=== PATIENT | female | born 1980 | race Caucasian/White ===

== ENCOUNTER 2017-05-13 17:33 | Emergency (ER) | payer OTHER ==
[~2017-05-13] VITALS: Ht 170.2 cm; Wt 110.3 kg
[~2017-05-13 17:33] MED LIST: HYDR-2362 PO
[2017-05-13 18:21] VITALS: BP 152/99
--- NOTE | 2017-05-13 19:28 | NUR ---
36/F CAME IN W C/O DIZZINESS, SUDDEN ONSET TODAY WHILE SHOPPING. ALSO REPORTS DRY MOUTH AND BLURRY VISION. DENIES CP/ REPORTS INTERMITTENT SOB DURING ACTIVITY. ALL LUNG SOUNDS,CBTA 20RR EVEN AND UNLABORED. GCS 15, AOX4, AMBULATORY WITH STEADY GAIT. BS 384, 2 HOURS POSTPRANDIAL. PMH: PREDIABETES, HTN RX: LISINOPRIL
[2017-05-13] MEDS ORDERED: NACL 0.9% 1,000 ML IV ONE (20:10)
[2017-05-13 20:15] LABS: APPEARANCE,URINE CLEAR (CLEAR); BILIRUBIN,URINE NEGATIVE (NEGATIVE); BLOOD, URINE TRACE-I (NEGATIVE); COLOR,URINE YELLOW (YELLOW); LEUKOCYTE ESTERASE ,URINE NEGATIVE (NEGATIVE); NITRITE, URINE NEGATIVE (NEGATIVE); UGLUCOSE 3+ (NEGATIVE)
[2017-05-13 20:37] LABS: RBC,URINE 0-5 (RARE) /HPF (0-5); WBC,URINE 0-5 (RARE) /HPF (0-5)
[2017-05-13 20:48] LABS: BASOPHILS # (AUTO) 0.1 K/uL (0.00-0.22); BASOPHILS % (AUTO) 0.9 % (0.0-2.0); EOSINOPHILS # (AUTO) 0.2 K/uL (0-0.4); EOSINOPHILS % (AUTO) 1.3 % (0.0-4.0); HEMOGLOBIN 11.9 g/dL (12.0-16.0); LYMPHOCYTES % (AUTO) 22.3 % (20.5-51.1); MEAN CORPUSCULAR HEMOGLOBIN 30 pg (27-31); MEAN CORPUSCULAR HGB CONC 34 g/dL (33-37); MEAN CORPUSCULAR VOLUME 89 fL (80-94); MONOCYTES # (AUTO) 0.8 K/uL (0.8-1.0); MONOCYTES % (AUTO) 5.8 % (1.7-9.3); NEUTROPHILS # (AUTO) 9.5 K/uL (1.8-7.7); NEUTROPHILS % (AUTO) 69.7 % (42.2-75.2); PLATELET COUNT (AUTO) 284 K/uL (140-450); RED BLOOD CELL COUNT(AUTO) 3.94 MIL/uL (4.20-5.40); RED CELL DISTRIBUTION WIDTH 12.5 % (11.6-13.7); WHITE BLOOD COUNT (AUTO) 13.6 K/uL (4.8-10.8)
[2017-05-13 20:56] LABS: CREATININE 0.9 mg/dL (0.6-1.3)
[2017-05-13] MEDS ORDERED: INSULIN HUMAN REGULAR 100 UNITS/ML 10 ML VIAL IVP ONE (21:05)
[2017-05-13 21:11] LABS: ALBUMIN 3.8 g/dL (3.4-5.0); FREE T4 (FREE THYROXINE) 0.92 ng/dL (0.76-1.46); THYROID STIMULATING HORMONE 1.59 uIU/mL (0.34-3.74); TOTAL BILIRUBIN 0.2 mg/dL (0.0-1.0)
--- NOTE | 2017-05-13 21:32 | NUR ---
Patient discharged with v/s stable. Written and verbal after care instructions given and explained. Patient alert, oriented and verbalized understanding of instructions. Ambulatory with steady gait. All questions addressed prior to discharge. ID band removed. Patient advised to follow up with PMD. Rx of METFORMIN given. Patient educated on indication of medication including possible reaction and side effects. Opportunity to ask questions provided and answered. IV removed, catheter intact and site benign. Applied folded 4x4 gauze and tape to stop bleeding.
[2017-05-13 21:34] VITALS: BP 131/74
== END 2017-05-13 21:32 | disposition home or self-care (01) ==
LOC: MED 17:33
DX: R73.9 Hyperglycemia, unspecified (principal); I10 Essential (primary) hypertension; E66.9 Obesity, unspecified; Z79.899 Other long term (current) drug therapy
CPT/HCPCS: 36415; 80053; 81001; 81025; 82948; 84439; 84443; 85025; 93005; 96360; 96372; 99285; J1815; 96361

== ENCOUNTER 2018-05-10 19:00 | Emergency (ER) | payer OTHER ==
[~2018-05-10] VITALS: Ht 170.2 cm; Wt 109.0 kg
[2018-05-10 19:05] VITALS: BP 174/103
--- NOTE | 2018-05-10 19:07 | NUR ---
PT AMBULATED TO ER BED 11
--- NOTE | 2018-05-10 19:10 | NUR ---
PT PRESENTED TO ED WITH C/O ABD PAIN AND BLOATING. PT STATES PAIN STARTED THIS AM. PAIN 10/27.
--- NOTE | 2018-05-10 19:28 | NUR ---
DR DAVENPORT AT BEDSIDE SEEING PT
[2018-05-10] MEDS ORDERED: MORPHINE SULFATE 4 MG/ML SYR IVP ONE (19:35)
[2018-05-10] MEDS ORDERED: NACL 0.9% 1,000 ML IV SCH (19:35)
[2018-05-10] MEDS ORDERED: ONDANSETRON 4 MG/2 ML VIAL IVP ONE (19:35)
[2018-05-10 20:04] LABS: BASOPHILS # (AUTO) 0.3 K/uL (0.00-0.22); BASOPHILS % (AUTO) 1.6 % (0.0-2.0); EOSINOPHILS # (AUTO) 0.2 K/uL (0-0.4); HEMATOCRIT 33.4 % (36-48); HEMOGLOBIN 10.8 g/dL (12.0-16.0); LYMPHOCYTES # (AUTO) 2.3 K/uL (2.5-16.5); LYMPHOCYTES % (AUTO) 13.1 % (20.5-51.1); MEAN CORPUSCULAR HEMOGLOBIN 29 pg (27-31); MEAN CORPUSCULAR HGB CONC 32 g/dL (33-37); MEAN CORPUSCULAR VOLUME 88.8 fL (80-94); MONOCYTES # (AUTO) 0.7 K/uL (0.8-1.0); MONOCYTES % (AUTO) 3.9 % (1.7-9.3); NEUTROPHILS % (AUTO) 80.4 % (42.2-75.2); PLATELET COUNT (AUTO) 300 K/uL (140-450); RED BLOOD CELL COUNT(AUTO) 3.76 MIL/uL (4.20-5.40); RED CELL DISTRIBUTION WIDTH 13.1 % (11.6-13.7); WHITE BLOOD COUNT (AUTO) 17.4 K/uL (4.8-10.8)
[2018-05-10 20:14] LABS: APPEARANCE,URINE CLEAR (CLEAR); BILIRUBIN,URINE NEGATIVE (NEGATIVE); BLOOD, URINE 3+ (NEGATIVE); COLOR,URINE YELLOW (YELLOW); LEUKOCYTE ESTERASE ,URINE TRACE (NEGATIVE); NITRITE, URINE NEGATIVE (NEGATIVE); UGLUCOSE NEGATIVE (NEGATIVE)
--- NOTE | 2018-05-10 20:14 | NUR ---
PT TAKEN TO CT
[2018-05-10 20:19] LABS: RBC,URINE 11-20 (MOD) /HPF (0-5); WBC,URINE 0-5 (RARE) /HPF (0-5)
[2018-05-10 20:22] LABS: ANION GAP 13.6 (8-16); CARBON DIOXIDE 24.9 mmol/L (21-32); CREATININE 0.8 mg/dL (0.6-1.3); POTASSIUM 3.5 mmol/L (3.5-5.1); TOTAL BILIRUBIN 0.3 mg/dL (0.0-1.0)
--- NOTE | 2018-05-10 20:22 | NUR ---
PT RETURN FROM CT
[2018-05-10 20:51] LABS: ALBUMIN 3.7 g/dL (3.4-5.0)
[2018-05-10 21:09] VITALS: BP 123/58
--- NOTE | 2018-05-10 21:09 | NUR ---
Patient discharged with v/s stable. Written and verbal after care instructions given and explained. Patient alert, oriented and verbalized understanding of instructions. Ambulatory with steady gait. All questions addressed prior to discharge. ID band removed. Patient advised to follow up with PMD. Rx of NORCO, ZOFRAN AND MOTRIN given. Patient educated on indication of medication including possible reaction and side effects. Opportunity to ask questions provided and answered.
== END 2018-05-10 21:09 | disposition home or self-care (01) ==
LOC: MED 19:00
DX: R10.84 Generalized abdominal pain (principal); R11.0 Nausea; R50.9 Fever, unspecified; E11.9 Type 2 diabetes mellitus without complications; I10 Essential (primary) hypertension; Z90.49 Acquired absence of other specified parts of digestive tract; Z79.899 Other long term (current) drug therapy
CPT/HCPCS: 36415; 74176; 80053; 81001; 81025; 83690; 85025; 87086; 96374; 96375; 99284; J2270; J2405; J7030

== ENCOUNTER 2018-09-16 00:58 | Emergency (ER) | payer OTHER ==
[~2018-09-16] VITALS: Ht 162.6 cm; Wt 74.8 kg
[2018-09-16 01:07] VITALS: BP 165/91
[2018-09-16] MEDS ORDERED: KETOROLAC 60 MG/2 ML VIAL IM ONE (01:15)
[2018-09-16] MEDS ORDERED: MORPHINE SULFATE 4 MG/ML SYR IM ONE (01:40)
--- NOTE | 2018-09-16 01:47 | NUR ---
DR. DAVENPORT BEDSIDE EVALUATING PT
[2018-09-16 02:09] VITALS: BP 142/86
== END 2018-09-16 02:08 | disposition home or self-care (01) ==
LOC: MED 00:58
DX: M25.511 Pain in right shoulder (principal); E11.9 Type 2 diabetes mellitus without complications; I10 Essential (primary) hypertension; F17.200 Nicotine dependence, unspecified, uncomplicated; Z90.49 Acquired absence of other specified parts of digestive tract; Z79.899 Other long term (current) drug therapy
CPT/HCPCS: 81025; 96372; 99283; J1885; 81002; J2270

== ENCOUNTER 2019-02-13 13:02 | Emergency (ER) | payer SELFPAY ==
[~2019-02-13] VITALS: Ht 170.2 cm; Wt 103.4 kg
[2019-02-13 13:24] VITALS: BP 107/58
--- NOTE | 2019-02-13 13:41 | NUR ---
C/O SUDDEN ONSET OF RIGHT PELVIC SHARP/STABBING PAIN RADIATING RIGHT FLANK X THIS AM----HOT SENSATION UPON VOIDING +FATIGUE
[2019-02-13] MEDS ORDERED: LEVOFLOXACIN 500 MG TAB PO ONE (14:25)
[2019-02-13] MEDS ORDERED: KETOROLAC 60 MG/2 ML VIAL IM ONE (14:25)
[2019-02-13] MEDS ORDERED: cefTRIAXone 1,000 MG in LIDOCAINE 1% 2.1 ML IM ONE (14:25)
[2019-02-13 14:26] LABS: APPEARANCE,URINE CLOUDY (CLEAR); BILIRUBIN,URINE NEGATIVE (NEGATIVE); BLOOD, URINE 3+ (NEGATIVE); COLOR,URINE YELLOW (YELLOW); LEUKOCYTE ESTERASE ,URINE 1+ (NEGATIVE); NITRITE, URINE POSITIVE (NEGATIVE); PH,URINE 5.5 (5.0-9.0); UGLUCOSE NEGATIVE (NEGATIVE)
[2019-02-13 14:44] LABS: RBC,URINE 0-5 /HPF (0-5); WBC,URINE 60-80 /HPF (0-5)
[2019-02-13] MEDS ORDERED: cefTRIAXone 1,000 MG VIAL ONE (14:49)
[2019-02-13] MEDS ORDERED: LIDOCAINE MPF 1% 5 ML ONE (14:50)
--- NOTE | 2019-02-13 15:00 | NUR ---
Dr. Ruelas evaluating patient at bedside.
--- NOTE | 2019-02-13 15:31 | NUR ---
PT TO CT VIA WC
--- NOTE | 2019-02-13 15:31 | NUR ---
Pt taken to CT via w/c.
--- NOTE | 2019-02-13 15:40 | NUR ---
Patient returned from CT scan. RN re-evaluating patient at bedside.
[2019-02-13] MEDS ORDERED: LACTULOSE 20 GM/30 ML UDC PO ONE (16:15)
[2019-02-13 17:12] VITALS: BP 109/62
--- NOTE | 2019-02-13 17:12 | NUR ---
Patient discharged with v/s stable. Written and verbal after care instructions given and explained. Patient alert, oriented and verbalized understanding of instructions. Ambulatory with steady gait. All questions addressed prior to discharge. ID band removed. Patient advised to follow up with PMD. Rx of Colace 100mg, Motrin 800mg and Levaquin 500mg given. Patient educated on indication of medication including possible reaction and side effects. Opportunity to ask questions provided and answered.
--- NOTE | 2019-02-15 17:27 | NUR ---
positive urine culture for e.coli finalized. reviwed chart, called back pt to return for sensitive to culture Macrobid. Left a voice message to number provided in system. pt to call back and provide pharmacy or return to [facility] prescription.
== END 2019-02-13 17:12 | disposition home or self-care (01) ==
LOC: MED 13:02
DX: N12 Tubulo-interstitial nephritis, not specified as acute or chronic (principal); K80.50 Calculus of bile duct without cholangitis or cholecystitis without obstruction; K59.00 Constipation, unspecified; I10 Essential (primary) hypertension; E11.9 Type 2 diabetes mellitus without complications; Z79.899 Other long term (current) drug therapy
CPT/HCPCS: 74176; 81001; 81025; 82948; 87086; 87186; 96372; 99284; J0696; J1885; J2001

== ENCOUNTER 2019-12-03 22:31 | Emergency (ER) | payer MEDICAID ==
[~2019-12-03] VITALS: Ht 170.2 cm; Wt 108.9 kg
[2019-12-03 22:51] VITALS: BP 146/86
--- NOTE | 2019-12-03 22:57 | NUR ---
PT AMBULATED TO BED 5 WITH STEADY GAIT
--- NOTE | 2019-12-03 23:01 | NUR ---
PT PROVIDED URINE SAMPLE
--- NOTE | 2019-12-03 23:05 | NUR ---
39 Y/O FEMALE PRESENTED TO ED C/O PAINFUL URINATION X 3 WEEKS. PT STATES AFTER URINATION SHE GETS BURNING SENSATION LLQ & RLQ ABD THAT RADIATES TO RIGHT FLANK. PT RATES PAIN 8/10 BUT ONLY HURTS AFTER URINATION. PT DENIES TAKING ANY MEDICATION FOR PAIN. PT DENIES N/V/D/FEVER/CHILLS/BODY ACHES. PT ABD ROUND, SOFT AND NON TENDER. NORMOACTIVE BOWEL SOUNDS. A/O X 4 , RR EVEN AND UNLABORED, VSS. PT RESTING IN BED, LOCKED AND IN LOWEST POSITION, HOB ELEVATED, SIDE RAIL X1. PMH: DM, HTN, UTI NKA
--- NOTE | 2019-12-03 23:12 | NUR ---
URINE SAMPLE COLLECTED AND WALKED TO LAB.
[2019-12-03 23:16] LABS: APPEARANCE,URINE CLEAR (CLEAR); BILIRUBIN,URINE NEGATIVE (NEGATIVE); BLOOD, URINE NEGATIVE (NEGATIVE); COLOR,URINE YELLOW (YELLOW); LEUKOCYTE ESTERASE ,URINE NEGATIVE (NEGATIVE); NITRITE, URINE NEGATIVE (NEGATIVE); PH,URINE 5.5 (5.0-9.0); UGLUCOSE 3+ (NEGATIVE)
[2019-12-03] MEDS ORDERED: NACL 0.9% 1,000 ML IV ONE (23:25)
--- NOTE | 2019-12-03 23:33 | NUR ---
LAB AT BEDSIDE.
--- NOTE | 2019-12-03 23:35 | NUR ---
PT AMBULATED TO RESTROOM W/ STEADY GAIT.
[2019-12-03 23:39] LABS: BASOPHILS # (AUTO) 0.1 K/uL (0.00-0.22); BASOPHILS % (AUTO) 0.6 % (0.0-2.0); EOSINOPHILS # (AUTO) 0.3 K/uL (0-0.4); EOSINOPHILS % (AUTO) 2.5 % (0.0-4.0); HEMATOCRIT 36.4 % (36-48); HEMOGLOBIN 12.1 g/dL (12.0-16.0); LYMPHOCYTES # (AUTO) 4.6 K/uL (2.5-16.5); LYMPHOCYTES % (AUTO) 34.9 % (20.5-51.1); MEAN CORPUSCULAR HEMOGLOBIN 30 pg (27-31); MEAN CORPUSCULAR HGB CONC 33 g/dL (33-37); MEAN CORPUSCULAR VOLUME 89.4 fL (80-94); MONOCYTES # (AUTO) 0.8 K/uL (0.8-1.0); MONOCYTES % (AUTO) 5.8 % (1.7-9.3); NEUTROPHILS # (AUTO) 7.5 K/uL (1.8-7.7); NEUTROPHILS % (AUTO) 56.2 % (42.2-75.2); PLATELET COUNT (AUTO) 285 K/uL (140-450); RED BLOOD CELL COUNT(AUTO) 4.07 MIL/uL (4.20-5.40); RED CELL DISTRIBUTION WIDTH 13.1 % (11.6-13.7); WHITE BLOOD COUNT (AUTO) 13.3 K/uL (4.8-10.8)
--- NOTE | 2019-12-03 23:40 | NUR ---
20 G IV CATH INSERTED ON LT A/C , FLUSHED W/ 10 CC NS . IV SITE , PATENT , NO REDNESS, SWELLING OR PAIN NOTED AT IV SITE.
--- NOTE | 2019-12-03 23:46 | NUR ---
PT TAKEN TO CT VIA W/C
--- NOTE | 2019-12-03 23:53 | NUR ---
PT RETURNED FROM CT VIA W/C
[2019-12-03 23:54] LABS: RBC,URINE 0-5 /HPF (0-5); WBC,URINE 0-5 /HPF (0-5)
[2019-12-04] LABS: ALBUMIN 4.1 g/dL (3.4-5.0); ANION GAP 16.5 (8-16); CARBON DIOXIDE 25.2 mmol/L (21-32); CREATININE 0.9 mg/dL (0.6-1.3); POTASSIUM 3.7 mmol/L (3.5-5.1); TOTAL BILIRUBIN 0.3 mg/dL (0.0-1.0)
--- NOTE | 2019-12-04 00:45 | NUR ---
PT AMBULATED TO RESTROOM W/ STEADY GAIT
--- NOTE | 2019-12-04 01:10 | NUR ---
IV removed, catheter intact and site benign. Applied folded 4x4 gauze and tape to stop bleeding.
[2019-12-04 01:12] VITALS: BP 143/82
--- NOTE | 2019-12-04 01:12 | NUR ---
Patient discharged with v/s stable. Written and verbal after care instructions given and explained. Patient alert, oriented and verbalized understanding of instructions. Ambulatory with steady gait. All questions addressed prior to discharge. ID band removed. Patient advised to follow up with PMD. Rx of LEVAQUIN given. Patient educated on indication of medication including possible reaction and side effects. Opportunity to ask questions provided and answered.
== END 2019-12-04 01:12 | disposition home or self-care (01) ==
LOC: MED 22:31
DX: N39.0 Urinary tract infection, site not specified (principal); F17.210 Nicotine dependence, cigarettes, uncomplicated; E11.9 Type 2 diabetes mellitus without complications; I10 Essential (primary) hypertension; Z79.899 Other long term (current) drug therapy
CPT/HCPCS: 36415; 80053; 81001; 81025; 82948; 85025; 96360; 99284

== ENCOUNTER 2020-01-31 18:28 | Emergency (ER) | payer MEDICAID, OTHER ==
[~2020-01-31] VITALS: Ht 170.2 cm; Wt 106.1 kg
[2020-01-31 18:33] VITALS: BP 135/70
--- NOTE | 2020-01-31 19:05 | NUR ---
PT C/O STERNAL CP 3/10 WITH HEAVINESS SENSATION RADIATING TO LEFT SHOULDER AND LEFT-SIDED NECK AND JAW ACCOMPANIED BY NAUSEA, DIZZINESS, BLURRY VISION FOR 3 HOURS. PT ALSO REPORTS HAVING CIARRA TEMPORAL HEADACHE WITH 8/10 INTENDITY. PT AOX4 , AFIBRILE , AMBULATORY WITH STEADY GAIT , SCE , ROUND SOFT ABDOMEN . PMH: DM, HTN, TUMOR OF LIVER (NOT R/O MALIGNANCY YET) MEDS: METFORMIN, GLIPIZIDE, LISINOPRIL, LIPITOR, ASA
--- NOTE | 2020-01-31 19:19 | NUR ---
GAVE REPORT TO JOSEPH MARQUEZ PT COMFORTABLE IN BED , SIDE RAILS UP AND LOCK TO LOWEST POSITION.
[2020-01-31] MEDS ORDERED: ASPIRIN 81 MG TAB.CHEW PO ONE (19:25)
[2020-01-31] MEDS ORDERED: NACL 0.9% 500 ML IV ONE (19:25)
--- NOTE | 2020-01-31 19:27 | NUR ---
20 G RAC PLACED, AND LABS DRAWN. PT TOLERATED WELL. WILL CONTINUE TO MONITOR.
--- NOTE | 2020-01-31 19:32 | NUR ---
X-Ray at bedside.
[2020-01-31 19:37] LABS: BASOPHILS # (AUTO) 0.1 K/uL (0.00-0.22); BASOPHILS % (AUTO) 0.5 % (0.0-2.0); EOSINOPHILS # (AUTO) 0.1 K/uL (0-0.4); HEMATOCRIT 32.5 % (36-48); LYMPHOCYTES # (AUTO) 3.6 K/uL (2.5-16.5); LYMPHOCYTES % (AUTO) 25.8 % (20.5-51.1); MEAN CORPUSCULAR HEMOGLOBIN 30 pg (27-31); MEAN CORPUSCULAR HGB CONC 34 g/dL (33-37); MEAN CORPUSCULAR VOLUME 89.2 fL (80-94); MONOCYTES # (AUTO) 0.5 K/uL (0.8-1.0); MONOCYTES % (AUTO) 3.3 % (1.7-9.3); NEUTROPHILS # (AUTO) 9.7 K/uL (1.8-7.7); NEUTROPHILS % (AUTO) 69.4 % (42.2-75.2); PLATELET COUNT (AUTO) 336 K/uL (140-450); RED BLOOD CELL COUNT(AUTO) 3.65 MIL/uL (4.20-5.40); RED CELL DISTRIBUTION WIDTH 13.7 % (11.6-13.7)
[2020-01-31 19:49] LABS: ANION GAP 18.7 (8-16); CARBON DIOXIDE 22.1 mmol/L (21-32); POTASSIUM 3.8 mmol/L (3.5-5.1)
--- NOTE | 2020-01-31 19:51 | NUR ---
Dr. Cordero examining patient.
[2020-01-31 19:54] LABS: ALBUMIN 3.9 g/dL (3.4-5.0); TOTAL BILIRUBIN 0.3 mg/dL (0.0-1.0)
--- NOTE | 2020-01-31 20:41 | NUR ---
PT RESTING IN BED QUIETLY. REMAINS CONNECTED TO BED SIDE MONITOR. VSS, R/R EQUAL, AND UNLABORED. NO DISTRESS NOTED. SIDE RAIL X1, BED IN LOW POSITION, WILL CONTINUE TO MONITOR.
--- NOTE | 2020-01-31 21:57 | NUR ---
PT AMBULATED TO RESTROOM, WITH STEADY GAIT.
[2020-01-31 22:11] VITALS: BP 135/70
--- NOTE | 2020-01-31 22:11 | NUR ---
Patient discharged with v/s stable. Written and verbal after care instructions given and explained. Patient alert, oriented and verbalized understanding of instructions. Ambulatory with steady gait. All questions addressed prior to discharge. ID band removed. Patient advised to follow up with PMD. Rx of PROTONIX given. Patient educated on indication of medication including possible reaction and side effects. Opportunity to ask questions provided and answered.
== END 2020-01-31 22:11 | disposition home or self-care (01) ==
LOC: MED 18:28
DX: K29.70 Gastritis, unspecified, without bleeding (principal); C22.0 Liver cell carcinoma; E11.9 Type 2 diabetes mellitus without complications; I10 Essential (primary) hypertension; Z79.899 Other long term (current) drug therapy
CPT/HCPCS: 36415; 71045; 80053; 81002; 81025; 84484; 85025; 93005; 99285; J7030; Q0092

== ENCOUNTER 2021-02-13 08:16 | Emergency (ER) | payer BC, OTHER ==
[~2021-02-13] VITALS: Ht 170.2 cm; Wt 99.8 kg
[2021-02-13 08:21] VITALS: BP 152/91
--- NOTE | 2021-02-13 08:47 | NUR ---
40 Y/O F BIB SELF FROM HOME, PATIENT PRESENTS TO ED WITH NECK PAIN THAT RADIATES TO HEAD AND CHILLS . PT STATES SHE THINKS SHE SLEPT ON HER NECK WRONG 3 DAYS AGO AD HAS BEEN HAVING INTENSE PAIN SINCE THEN. DENIES N/V/D; SKIN IS PINK/WARM/DRY; AAOX4 WITH EVEN AND STEADY GAIT, FULL ROM OF NECK AND UPPER EXTREMITIES; LUNGS CLEAR BL; HR EVEN AND REGULAR; PT DENIES ANY FEVER, CP, SOB, OR COUGH AT THIS TIME; PATIENT STATES PAIN OF 10/10 AT THIS TIME; VSS; PATIENT POSITIONED FOR COMFORT; HOB ELEVATED; BEDRAILS UP X2; BED DOWN. ER MD MADE AWARE OF PT STATUS. PMH: DM2, HTN MED: IBUPROFEN 800MG (LAST DOSE LAST NIGHT, NO RELIEF), METFORMIN, GLIPIZIDE, LISINOPRIL
[2021-02-13] MEDS ORDERED: diazePAM 5 MG TAB PO ONE (08:50)
[2021-02-13] MEDS ORDERED: KETOROLAC 30 MG/ML VIAL IM ONE (08:50)
[2021-02-13] MEDS ORDERED: ACET-8386 PO (10:17)
[2021-02-13] MEDS ORDERED: IBUP-2213 PO (10:17)
[2021-02-13] MEDS ORDERED: DIAZ5TAB7 PO (10:17)
[2021-02-13] MEDS ORDERED: ONDA-188 PO (10:17)
[2021-02-13 10:48] VITALS: BP 108/58
--- NOTE | 2021-02-13 10:48 | NUR ---
Patient discharged with v/s stable. Written and verbal after care instructions given and explained. Patient alert, oriented and verbalized understanding of instructions. Ambulatory with steady gait. All questions addressed prior to discharge. ID band removed. Patient advised to follow up with PMD. Rx of HYDROCODONE/ACETAMINOPHEN, DIAZEPAM, IBUPROFEN, ZOFRAN given. Patient educated on indication of medication including possible reaction and side effects. Opportunity to ask questions provided and answered.
== END 2021-02-13 10:48 | disposition home or self-care (01) ==
LOC: MED 08:16
DX: M54.2 Cervicalgia (principal); R25.2 Cramp and spasm; E11.9 Type 2 diabetes mellitus without complications; I10 Essential (primary) hypertension; Z90.49 Acquired absence of other specified parts of digestive tract
CPT/HCPCS: 96372; 99283; J1885

== ENCOUNTER 2021-08-05 09:00 | Emergency (ER) | payer BC, OTHER ==
[~2021-08-05] VITALS: Ht 170.2 cm; Wt 102.1 kg
[~2021-08-05 09:00] MED LIST changes: +ACET-8386 PO; +DIAZ5TAB8 PO; +IBUP-2213 PO; +ONDA-188 PO
[2021-08-05 09:05] VITALS: BP 163/92
--- NOTE | 2021-08-05 09:10 | NUR ---
pt ambulated to bed 03 with steady gait
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
[2021-08-05] MEDS ORDERED: KETOROLAC 30 MG/ML VIAL IM ONE (09:20)
[2021-08-05] MEDS ORDERED: diazePAM 5 MG TAB PO ONE (09:20)
--- NOTE | 2021-08-05 09:27 | NUR ---
PT AWARE SHE WILL NEED TO ARRANGE FOR A RIDE AFTER TAKING DIAZEPAM MEDICATION, PT STATES HER MOTHER WILL BE PICKING HER UP
--- NOTE | 2021-08-05 09:31 | NUR ---
PT TAKEN TO CT SCAN
[2021-08-05] MEDS ORDERED: NAPR-54 PO (10:04)
[2021-08-05 10:25] VITALS: BP 163/92
== END 2021-08-05 10:25 | disposition home or self-care (01) ==
LOC: MED 09:00
DX: S09.90XA Unspecified injury of head, initial encounter (principal); I10 Essential (primary) hypertension; E11.9 Type 2 diabetes mellitus without complications; Z90.49 Acquired absence of other specified parts of digestive tract; W22.8XXA Striking against or struck by other objects, initial encounter; Y93.89 Activity, other specified; Y92.89 Other specified places as the place of occurrence of the external cause; Y99.8 Other external cause status
CPT/HCPCS: 70450; 96372; 99284; J1885

== ENCOUNTER 2021-09-12 20:21 | Emergency (ER) | payer BC, OTHER ==
[~2021-09-12] VITALS: Ht 170.2 cm; Wt 99.8 kg
[~2021-09-12 20:21] MED LIST changes: +NAPR-54 PO
[2021-09-12 20:46] VITALS: BP 151/80
--- NOTE | 2021-09-12 20:54 | NUR ---
PT TAKEN BED 10
--- NOTE | 2021-09-12 21:11 | NUR ---
ER MD AT BEDSIDE EXAMINING PT
--- NOTE | 2021-09-12 21:11 | NUR ---
41 Y/O FEMALE BIBS FROM HOME, C/O PAIN FROM INCISION SITE X2 WKS. PT STATES SHE HAS A TUBAL LIGATION SURGERY 2 WEEKS AGO AND TODAY SHE NOTICED "WHITE" DRAINAGE FROM THE BELLY BUTTON/INCISION SITE. 7/10 SHARP PAIN WHEN SHE COUGH/SNEEZE/MOVES. PRIOR TO SURG PT WAS NOTIFIED SHE HAD A "HIGH WHITE COUNT." A/OX4, GCS-15; UNLABORED BREATHING AND SPEAKING IN FULL SENTENCES; AMBULATORY W/O ASSISTANCE; SKIN NORMAL/DRY/WARM; PT SEATED IN BED WITH HOB RAISED, BED IN LOWEST SETTING, AND RAIL UP X1. HX: DM, HDL, HTN NKA MED: METFORMIN, OZEMPIC, LISINOPRIL, ASPRIN, ATORVASTATIN, HTZ
--- NOTE | 2021-09-12 21:31 | NUR ---
er at bedside
[2021-09-12] MEDS ORDERED: BACITRACIN OINT 500 UNITS/GM PKT TP ONE (21:33)
[2021-09-12] MEDS ORDERED: cephALEXin 500 MG CAP PO ONE (21:35)
[2021-09-12] MEDS ORDERED: SULFAMETH/TRIMETH DS 800/160MG 1 TAB PO ONE (21:35)
[2021-09-12] MEDS ORDERED: SULF-59 PO (21:43)
[2021-09-12] MEDS ORDERED: CEPH-588 PO (21:43)
[2021-09-12 22:25] VITALS: BP 151/80
--- NOTE | 2021-09-12 22:26 | NUR ---
Patient discharged with v/s stable. Written and verbal after care instructions given and explained. Patient alert, oriented and verbalized understanding of instructions. Ambulatory with steady gait. All questions addressed prior to discharge. ID band removed. Patient advised to follow up with PMD. Rx of KEFLEX AND BACTRIM DS TABLETS given. Patient educated on indication of medication including possible reaction and side effects. Opportunity to ask questions provided and answered. VSS, A/OX4, AMBULATORY, UNLABORED BREATHING, AND CALM DEMEANOR.
== END 2021-09-12 22:24 | disposition home or self-care (01) ==
LOC: MED 20:21
DX: L03.311 Cellulitis of abdominal wall (principal); E11.9 Type 2 diabetes mellitus without complications; I10 Essential (primary) hypertension; Z79.899 Other long term (current) drug therapy; Z98.890 Other specified postprocedural states
CPT/HCPCS: 99283

== ENCOUNTER 2021-10-31 05:57 | Emergency (ER) | payer BC, OTHER ==
[~2021-10-31] VITALS: Ht 170.2 cm; Wt 99.8 kg
[~2021-10-31 05:57] MED LIST changes: +CEPH-588 PO; +SULF-59 PO
[2021-10-31 05:59] VITALS: BP 118/69
[2021-10-31] MEDS ORDERED: LIDOCAINE MPF 1% 5 ML ONE (06:40)
[2021-10-31 07:54] VITALS: BP 116/62
--- NOTE | 2021-10-31 07:54 | NUR ---
Patient discharged with v/s stable. Written and verbal after care instructions given FOR ABSCESS and explained. Patient verbalized understanding. Ambulatory with steady gait. All questions addressed prior to discharge. Advised to follow up with PMD.
== END 2021-10-31 07:54 | disposition home or self-care (01) ==
LOC: MED 05:57
DX: L02.211 Cutaneous abscess of abdominal wall (principal); E11.9 Type 2 diabetes mellitus without complications; I10 Essential (primary) hypertension; Z79.899 Other long term (current) drug therapy; Z98.890 Other specified postprocedural states; Z90.49 Acquired absence of other specified parts of digestive tract
CPT/HCPCS: 10060; 99284; J2001

== ENCOUNTER 2022-06-29 21:17 | Emergency (ER) | payer BC, OTHER ==
[~2022-06-29] VITALS: Ht 170.2 cm; Wt 98.0 kg
[~2022-06-29 21:17] MED LIST changes: -ACET-8386 PO; +ACET-8905 PO
[2022-06-29 21:25] VITALS: BP 150/90
--- NOTE | 2022-06-29 21:28 | NUR ---
TO LOBBY A/W BED AMBYLATORY
[2022-06-29 22:24] LABS: APPEARANCE,URINE CLEAR (CLEAR); BILIRUBIN,URINE NEGATIVE (NEGATIVE); BLOOD, URINE NEGATIVE (NEGATIVE); COLOR,URINE YELLOW (YELLOW); LEUKOCYTE ESTERASE ,URINE 1+ (NEGATIVE); NITRITE, URINE POSITIVE (NEGATIVE); UGLUCOSE 3+ (NEGATIVE)
[2022-06-29 22:39] LABS: RBC,URINE 0-5 /HPF (0-5)
--- NOTE | 2022-06-29 22:43 | NUR ---
PT TO BED #5
[2022-06-29 22:46] VITALS: BP 150/90
--- NOTE | 2022-06-29 22:49 | NUR ---
LEFT LOWER ABD PAIN 09/27 SINCE LAST NIGHT. SUSPECT HERNIA. PT IS ALERT AND ORIENTED X4.
[2022-06-29] MEDS ORDERED: HYDROcodone/APAP 5/325 MG 1 TAB TAB PO ONE (23:20)
[2022-06-29] MEDS ORDERED: DICYCLOMINE 20 MG/2 ML VIAL IM ONE (23:20)
[2022-06-29 23:37] LABS: BASOPHILS # (AUTO) 0.1 K/uL (0.00-0.22); BASOPHILS % (AUTO) 0.7 % (0.0-2.0); EOSINOPHILS # (AUTO) 0.2 K/uL (0-0.4); EOSINOPHILS % (AUTO) 1.9 % (0.0-4.0); HEMOGLOBIN 10.9 g/dL (12.0-16.0); LYMPHOCYTES # (AUTO) 4.5 K/uL (2.5-16.5); LYMPHOCYTES % (AUTO) 35.3 % (20.5-51.1); MEAN CORPUSCULAR HEMOGLOBIN 30 pg (27-31); MEAN CORPUSCULAR HGB CONC 34 g/dL (33-37); MEAN CORPUSCULAR VOLUME 89.2 fL (80-94); MONOCYTES # (AUTO) 0.7 K/uL (0.8-1.0); MONOCYTES % (AUTO) 5.4 % (1.7-9.3); NEUTROPHILS # (AUTO) 7.3 K/uL (1.8-7.7); NEUTROPHILS % (AUTO) 56.7 % (42.2-75.2); PLATELET COUNT (AUTO) 348 K/uL (140-450); RED BLOOD CELL COUNT(AUTO) 3.59 MIL/uL (4.20-5.40); RED CELL DISTRIBUTION WIDTH 13.3 % (11.6-13.7); WHITE BLOOD COUNT (AUTO) 12.9 K/uL (4.8-10.8)
[2022-06-29 23:53] LABS: ALBUMIN 3.9 g/dL (3.4-5.0); ANION GAP 12.3 (8-16); CARBON DIOXIDE 30.4 mmol/L (21-32); CREATININE 0.9 mg/dL (0.6-1.3); POTASSIUM 3.7 mmol/L (3.5-5.1); TOTAL BILIRUBIN 0.1 mg/dL (0.0-1.0)
[2022-06-30] MEDS ORDERED: IBUPROFEN 600 MG TAB PO ONE (01:00)
[2022-06-30] MEDS ORDERED: PYR100 PO (01:23)
[2022-06-30] MEDS ORDERED: NAPR-54 PO (01:23)
[2022-06-30] MEDS ORDERED: CEPH-588 PO (01:23)
--- NOTE | 2022-06-30 02:15 | NUR ---
Patient discharged with v/s stable. Written and verbal after care instructions given and explained. Patient alert, oriented and verbalized understanding of instructions. Ambulatory with steady gait. All questions addressed prior to discharge. ID band removed. Patient advised to follow up with PMD. Rx of KEFLEX NAPROSYN PYRIDIUM given. Patient educated on indication of medication including possible reaction and side effects. Opportunity to ask questions provided and answered.
== END 2022-06-30 02:15 | disposition home or self-care (01) ==
LOC: MED 21:17
DX: N39.0 Urinary tract infection, site not specified (principal); E11.9 Type 2 diabetes mellitus without complications; D72.829 Elevated white blood cell count, unspecified; I10 Essential (primary) hypertension; Z90.49 Acquired absence of other specified parts of digestive tract; Z98.890 Other specified postprocedural states; Z79.899 Other long term (current) drug therapy; Z79.1 Long term (current) use of non-steroidal anti-inflammatories (NSAID); Z79.2 Long term (current) use of antibiotics; Z79.891 Long term (current) use of opiate analgesic
CPT/HCPCS: 36415; 74176; 80053; 81001; 81025; 83690; 85025; 87086; 96372; 99285; J0500

== ENCOUNTER 2023-04-28 14:37 | Emergency (ER) | payer OTHER ==
[~2023-04-28] VITALS: Ht 170.2 cm; Wt 99.8 kg
[~2023-04-28 14:37] MED LIST changes: +PYR100 PO
[2023-04-28 14:58] VITALS: BP 119/75; PULSE 75; RESP 20; TEMP 98.9; O2SAT 98
[2023-04-28] MEDS ORDERED: BENZ200C4 PO (16:00)
[2023-04-28] MEDS ORDERED: ALBU0.0912 IH (16:00)
== END 2023-04-28 16:33 | disposition home or self-care (01) ==
LOC: MED 14:37
DX: J06.9 Acute upper respiratory infection, unspecified (principal); E11.9 Type 2 diabetes mellitus without complications; I10 Essential (primary) hypertension; Z79.899 Other long term (current) drug therapy; Z79.1 Long term (current) use of non-steroidal anti-inflammatories (NSAID); Z79.2 Long term (current) use of antibiotics
CPT/HCPCS: 71045; 99283